=== PATIENT | male | born 1980 ===

== ENCOUNTER 2022-07-05 16:36 | Emergency (ER) | payer SELFPAY ==
[~2022-07-05] VITALS: Ht 177.8 cm; Wt 75.0 kg
[2022-07-05] MEDS ORDERED: IBUPROFEN 600 MG TABLET PO ONE (17:15)
[2022-07-05 17:56] VITALS: BP 122/65
[2022-07-05] MEDS ORDERED: IBUP-1554 PO (20:11)
[2022-07-05] MEDS ORDERED: HYDR-4723 PO (20:11)
== END 2022-07-05 21:40 | disposition home or self-care (01) ==
LOC: EMS 16:36
DX: S92.002A Unspecified fracture of left calcaneus, initial encounter for closed fracture (principal); X58.XXXA Exposure to other specified factors, initial encounter; Y93.89 Activity, other specified; Y92.89 Other specified places as the place of occurrence of the external cause; Y99.8 Other external cause status
CPT/HCPCS: 29515; 73700; 99284